=== PATIENT | male | born 1970 | race American Indian/Alaskan Native ===

== ENCOUNTER 2017-04-24 22:14 | Emergency (ER) | payer SELFPAY ==
[2017-04-24] MEDS ORDERED: Nitroglycerin 0.4 MG Tab.SL SL PRN (22:25)
[2017-04-24] MEDS ORDERED: Aspirin 81 MG Tab.Chew PO ONE (22:25)
[2017-04-24] MEDS ORDERED: Nitroglycerin 2% Oint 1 GM UD Packet TOP ONE (22:25)
--- NOTE | 2017-04-24 22:28 | EDM.PDOC ---
ED HPI GENERAL MEDICAL PROBLEM - General Chief Complaint: Chest Pain Stated Complaint: TROUBLE BREATHING/CHEST PAIN Time Seen by Provider: 04/24/17 22:24 - History of Present Illness INITIAL COMMENTS - FREE TEXT/NARRATIVE: HISTORY AND PHYSICAL: History of present illness: Patient is 46-year-old male with history of hypertension and medical noncompliance presents with concern of chest pain substernal with associated shortness of breath that woke sleeps approximately 1 hour prior to arrival been no diaphoresis nausea vomiting or palpitations patient denies other concern Review of systems: As per history of present illness and below otherwise all systems reviewed and negative. Past medical history: As per history of present illness and as reviewed below otherwise noncontributory. Surgical history: As per history of present illness and as reviewed below otherwise noncontributory. Social history: No reported history of drug or alcohol abuse. Family history: As per history of present illness and as reviewed below otherwise noncontributory. Physical exam: HEENT: Atraumatic, normocephalic, pupils reactive, negative for conjunctival pallor or scleral icterus, mucous membranes moist, throat clear, neck supple, nontender, trachea midline. Lungs: Clear to auscultation, breath sounds equal bilaterally, chest nontender. Heart: S1S2, regular, negative for clicks, rubs, or JVD. Abdomen: Soft, nondistended, nontender. Negative for masses or hepatosplenomegaly. Negative for costovertebral tenderness. Pelvis: Stable nontender. Genitourinary: Deferred. Rectal: Deferred. Extremities: Atraumatic, negative for cords or calf pain. Neurovascular unremarkable. Neuro: Awake, alert, oriented. Cranial nerves II through XII unremarkable. Cerebellum unremarkable. Motor and sensory unremarkable throughout. Exam nonfocal. Diagnostics: CBC CMP PT/INR troponin chest x-ray EKG Therapeutics: IV O2 monitor aspirin 324 mg sublingual nitroglycerin Impression: #1 chest pain #2 history hypertension #3 Vicryl noncompliance Definitive disposition and diagnosis as appropriate pending reevaluation and review of above. Chest Pain Score (Numeric/FACES): 7 - Related Data Allergies Allergy/AdvReac Type Severity Reaction Status Date / Time No Known Allergies Allergy Verified 04/24/17 22:18 Home Meds: Home Meds . [No Known Home Meds] 04/24/17 [History] Past Medical History Cardiovascular History: Reports: Hypertension, Other (See Below) Other Cardiovascular History: cardio problem unknown by patient Social & Family History - Tobacco Use Smoking Status *Q: Never Smoker - Recreational Drug Use Recreational Drug Use: No ED ROS GENERAL - Review of Systems Review Of Systems: ROS reveals no pertinent complaints other than HPI. ED EXAM, GENERAL - Physical Exam Exam: See Below (See dictation) Course - Vital Signs Last Recorded V/S: Last Vital Signs Temp Pulse Resp BP 152/85 H 04/24/17 22:40 Pulse Ox - Orders/Labs/Meds Orders: Active Orders 24 hr Category Date Time Status Cardiac Education [RC] Click to Edit Care 04/24/17 22:20 Active Cardiac Monitoring [RC] . DIRECTED Care 04/24/17 22:20 Active EKG Documentation Completion [RC] STAT Care 04/24/17 22:20 Active Chest 1V Frontal [CR] Stat Exams 04/24/17 22:22 Taken Nitroglycerin [Nitrostat] Med 04/24/17 22:25 Active 0.4 mg SL Q5M PRN Sodium Chloride 0.9% [Normal Saline] 1,000 ml Med 04/24/17 22:30 Active IV STAT Medication Orders Sodium Chloride (Normal Saline) 1,000 mls @ 125 mls/hr IV STAT ELIGIO Last Admin: 04/24/17 22:38 Dose: 125 mls/hr Nitroglycerin (Nitrostat) 0.4 mg SL Q5M PRN PRN Reason: Chest Pain Last Admin: 04/24/17 22:39 Dose: 0.4 mg Labs: Laboratory Tests 04/24/17 04/24/17 04/24/17 Range/Units 22:20 22:20 22:20 WBC 5.14 (4.0-11.0) K/uL RBC 4.96 (4.50-5.90) M/uL Hgb 16.2 (13.0-17.0) g/dL Hct 44.4 (38.0-50.0) % MCV 89.5 (80.0-98.0) fL MCH 32.7 H (27.0-32.0) pg MCHC 36.5 (31.0-37.0) g/dL RDW Std Deviation 42.6 (28.0-62.0) fl RDW Coeff of Mk 13 (11.0-15.0) % Plt Count 181 (150-400) K/uL MPV 9.40 (7.40-12.00) fL Neut % (Auto) 37.6 L (48.0-80.0) % Lymph % (Auto) 42.8 H (16.0-40.0) % [place] % (Auto) 12.8 (0.0-15.0) % Eos % (Auto) 6.6 (0.0-7.0) % Baso % (Auto) 0.2 (0.0-1.5) % Neut # (Auto) 1.9 (1.4-5.7) K/uL Lymph # (Auto) 2.2 (0.6-2.4) K/uL [place] # (Auto) 0.7 (0.0-0.8) K/uL Eos # (Auto) 0.3 (0.0-0.7) K/uL Baso # (Auto) 0.0 (0.0-0.1) K/uL Nucleated RBC % 0.0 /100WBC Nucleated RBCs # 0 K/uL INR 0.92 (0.86-1.11) Sodium 141 (136-146) mmol/L Potassium 3.8 (3.5-5.1) mmol/L Chloride 109 (98-110) mmol/L Carbon Dioxide 17 L (21-31) mmol/L BUN 15 (6.0-23.0) mg/dL Creatinine 0.8 (0.6-1.5) mg/dL Est Cr Clr Drug Dosing 125.29 mL/min Estimated GFR (MDRD) > 60.0 ml/min Glucose 137 H (60-110) mg/dL Calcium 9.5 (8.8-10.8) mg/dL Total Bilirubin 0.4 (0.1-1.5) mg/dL AST 39 (5-40) IU/L ALT 67 H (8-54) IU/L Alkaline Phosphatase 77 (40-150) CK-MB (CK-2) 0.7 (0-6.6) ng/ml Troponin I (0.0-0.29) NG/ML Total Protein 8.1 H (6.0-8.0) g/dL Albumin 4.5 (3.5-5.0) g/dL Globulin 3.6 H (2.0-3.5) g/dL Albumin/Globulin Ratio 1.3 (1.3-2.8) 04/24/17 Range/Units 22:20 WBC (4.0-11.0) K/uL RBC (4.50-5.90) M/uL Hgb (13.0-17.0) g/dL Hct (38.0-50.0) % MCV (80.0-98.0) fL MCH (27.0-32.0) pg MCHC (31.0-37.0) g/dL RDW Std Deviation (28.0-62.0) fl RDW Coeff of Mk (11.0-15.0) % Plt Count (150-400) K/uL MPV (7.40-12.00) fL Neut % (Auto) (48.0-80.0) % Lymph % (Auto) (16.0-40.0) % [place] % (Auto) (0.0-15.0) % Eos % (Auto) (0.0-7.0) % Baso % (Auto) (0.0-1.5) % Neut # (Auto) (1.4-5.7) K/uL Lymph # (Auto) (0.6-2.4) K/uL [place] # (Auto) (0.0-0.8) K/uL Eos # (Auto) (0.0-0.7) K/uL Baso # (Auto) (0.0-0.1) K/uL Nucleated RBC % /100WBC Nucleated RBCs # K/uL INR (0.86-1.11) Sodium (136-146) mmol/L Potassium (3.5-5.1) mmol/L Chloride (98-110) mmol/L Carbon Dioxide (21-31) mmol/L BUN (6.0-23.0) mg/dL Creatinine (0.6-1.5) mg/dL Est Cr Clr Drug Dosing mL/min Estimated GFR (MDRD) ml/min Glucose (60-110) mg/dL Calcium (8.8-10.8) mg/dL Total Bilirubin (0.1-1.5) mg/dL AST (5-40) IU/L ALT (8-54) IU/L Alkaline Phosphatase (40-150) CK-MB (CK-2) (0-6.6) ng/ml Troponin I < 0.10 (0.0-0.29) NG/ML Total Protein (6.0-8.0) g/dL Albumin (3.5-5.0) g/dL Globulin (2.0-3.5) g/dL Albumin/Globulin Ratio (1.3-2.8) Meds: Medications Generic Name Dose Route Start Last Admin Trade Name Freq PRN Reason Stop Dose Admin Sodium Chloride 1,000 mls @ 125 mls/hr 04/24/17 22:30 04/24/17 22:38 Normal Saline IV 125 mls/hr STAT ELIGIO Administration Nitroglycerin 0.4 mg 04/24/17 22:25 04/24/17 22:39 Nitrostat SL 0.4 mg Q5M PRN Administration Chest Pain Discontinued Medications Generic Name Dose Route Start Last Admin Trade Name Freq PRN Reason Stop Dose Admin Aspirin 324 mg 04/24/17 22:25 04/24/17 22:39 Aspirin PO 04/24/17 22:26 324 mg ONETIME ONE Administration Nitroglycerin 1 gm 04/24/17 22:25 04/24/17 22:39 Nitro-Bid 2% TOP 04/24/17 22:26 1 gm ONETIME ONE Administration Nitroglycerin Confirm 04/24/17 22:33 04/24/17 22:40 Nitrostat Administered 04/24/17 22:34 Not Given Dose 1.2 mg .ROUTE .STK-MED ONE Departure - Departure Time of Disposition: 23:28 Disposition: Against Medical Advice 07 Condition: Undetermined Clinical Impression: Chest pain - Discharge Information Forms: ED Department Discharge Additional Instructions: The following information is given to patients seen in the emergency department who are being discharged to home. This information is to outline your options for follow-up care. We provide all patients seen in our emergency department with a follow-up referral. The need for follow-up, as well as the timing and circumstances, are variable depending upon the specifics of your emergency department visit. If you don't have a primary care physician on staff, we will provide you with a referral. We always advise you to contact your personal physician following an emergency department visit to inform them of the circumstance of the visit and for follow-up with them and/or the need for any referrals to a consulting specialist. The emergency department will also refer you to a specialist when appropriate. This referral assures that you have the opportunity for followup care with a specialist. All of these measure are taken in an effort to provide you with optimal care, which includes your followup. Under all circumstances we always encourage you to contact your private physician who remains a resource for coordinating your care. When calling for followup care, please make the office aware that this follow-up is from your recent emergency room visit. If for any reason you are refused follow-up, please contact the [facility] emergency department at and asked to speak to the emergency department charge nurse. Follow-up primary medical doctor ADIEL take meds as prescribed and return as needed - My Orders Last 24 Hours: My Active Orders 04/24/17 22:20 Cardiac Education [RC] Click to Edit Cardiac Monitoring [RC] . DIRECTED EKG Documentation Completion [RC] STAT 04/24/17 22:22 Chest 1V Frontal [CR] Stat 04/24/17 22:25 Nitroglycerin [Nitrostat] 0.4 mg SL Q5M PRN 04/24/17 22:30 Sodium Chloride 0.9% [Normal Saline] 1,000 ml IV STAT - Assessment/Plan Last 24 Hours: My Active Orders 04/24/17 22:20 Cardiac Education [RC] Click to Edit Cardiac Monitoring [RC] . DIRECTED EKG Documentation Completion [RC] STAT 04/24/17 22:22 Chest 1V Frontal [CR] Stat 04/24/17 22:25 Nitroglycerin [Nitrostat] 0.4 mg SL Q5M PRN 04/24/17 22:30 Sodium Chloride 0.9% [Normal Saline] 1,000 ml IV STAT
[2017-04-24] MEDS ORDERED: Sodium Chloride 0.9% 1,000 ML IV SCH (22:30)
[2017-04-24] MEDS ORDERED: Nitroglycerin 0.4 MG Tab.SL ONE (22:33)
[2017-04-24 22:50] LABS: CHLORIDE,CL 109 mmol/L (98-110); SODIUM,NA 141 mmol/L (136-146)
[2017-04-25 00:08] VITALS: BP 140/80
--- NOTE | 2017-04-25 13:55 | CR ---
EXAM DATE: 04/24/17 PATIENT'S AGE: 46 Patient: ZO ALLEN Facility: [place], [place] Site . Site : [id number] Study: XRay Chest [id number]/29/2017 10:40:40 PM Ordering Physician: Doctor Bethea Final Report: INDICATION: chest pain TECHNIQUE: Chest 1 view COMPARISON: May 04, 2009. FINDINGS: Cardiovascular and mediastinum: Heart size and vasculature are normal in caliber and appearance. Mediastinum is within normal limits. Lungs and pleural space: No focal consolidation. Elevation of the right hemidiaphragm. No sign of pleural effusion. No pneumothorax. Bones and soft tissues: No significant findings. IMPRESSION: No acute cardiopulmonary disease. Dictated by Michelet Be MD @ 04/24/2017 11:17:30 PM Dictated by: Michelet Be MD @ 04/24/2017 23:17:37 (Electronic Signature) Report Signed by Proxy. MARY IMOGENE BASSETT HOSPITALJaun
== END 2017-04-24 23:42 | disposition left against medical advice (07) ==
LOC: MW.ED 22:14
DX: R07.2 Precordial pain (principal); I10 Essential (primary) hypertension; Z91.14 Patient's other noncompliance with medication regimen
CPT/HCPCS: 36415; 71010; 80053; 82553; 84484; 85025; 85610; 96360; 99285; A9270; J7040; 93005; 99283

== ENCOUNTER 2019-08-26 09:26 | Day surgery (SDC) | payer OTHER ==
[~2019-08-26 09:26] MED LIST: Lactated Ringers 1,000 ML IV SCH; Sodium Chloride 0.9% 10 ML SDV IV PRN; Sodium Chloride 0.9% 10 ML Syringe FLUSH PRN; Sodium Chloride 0.9% 2.5 ML Syringe FLUSH PRN
[2019-08-26] MEDS ORDERED: Lidocaine 2% 5 ML SDV ONE (11:26)
[2019-08-26] MEDS ORDERED: Propofol 200 MG/20 ML SDV ONE (11:26)
[2019-08-26] MEDS ORDERED: Midazolam 1 MG/ML 2 ML SDV ONE (11:26)
[2019-08-26] MEDS ORDERED: Glycopyrrolate 0.2 MG/ML SDV ONE (11:26)
--- NOTE | 2019-08-26 12:37 | PCM.OPNOTE ---
- General Post-Op/Procedure Note Date of Surgery/Procedure: 08/26/19 Operative Procedure(s): Diagnostic EGD and colonoscopy Findings: Hiatal hernia with esophagitis, transverse colon lipoma, descending colon polyp , rectal polyp Pre Op Diagnosis: Hemoptysis, change in bowel habits Post-Op Diagnosis: Hiatal hernia with esophagitis, transverse colon lipoma, descending colon polyp, rectal polyp Anesthesia Technique: MAC Primary Surgeon: Erny Cheung Condition: Good
[2019-08-26 12:49] VITALS: BP 119/83; PULSE 63
--- NOTE | 2019-08-26 14:01 | PCM48HPAN ---
Post Anesthesia Note - EVALUATION WITHIN 48HRS OF ANESTHETIC Vital Signs in Normal Range: Yes Patient Participated in Evaluation: Yes Respiratory Function Stable: Yes Airway Patent: Yes Cardiovascular Function Stable: Yes Hydration Status Stable: Yes Pain Control Satisfactory: Yes Nausea and Vomiting Control Satisfactory: Yes Mental Status Recovered: Yes Vital Signs: Last Vital Signs Temp 96.8 F 08/26/19 12:43 Pulse 63 08/26/19 12:43 Resp 16 08/26/19 12:43 BP 119/83 08/26/19 12:43 Pulse Ox 99 08/26/19 12:43
--- NOTE | 2019-08-26 14:01 | PCM.POSTAN ---
POST ANESTHESIA ASSESSMENT - MENTAL STATUS Mental Status: Alert, Oriented - VITAL SIGNS Vital Signs: Last Vital Signs Temp 96.8 F 08/26/19 12:43 Pulse 63 08/26/19 12:43 Resp 16 08/26/19 12:43 BP 119/83 08/26/19 12:43 Pulse Ox 99 08/26/19 12:43 - RESPIRATORY Respiratory Status: Respiratory Rate WNL, Airway Patent, O2 Saturation Stable - CARDIOVASCULAR CV Status: Pulse Rate WNL, Blood Pressure Stable - GASTROINTESTINAL GI Status: No Symptoms - POST OP HYDRATION Hydration Status: Adequate & Stable
--- NOTE | 2019-08-26 14:01 | PCM.PREANE ---
Preanesthetic Assessment - Anesthesia/Transfusion/Family Hx Anesthesia History: No Prior Anesthesia Family History of Anesthesia Reaction: No Transfusion History: No Prior Transfusion(s) - Review of Systems General: No Symptoms Pulmonary: No Symptoms Cardiovascular: No Symptoms Gastrointestinal: No Symptoms Neurological: No Symptoms Other: Reports: None - Physical Assessment NPO Status Date: 08/26/19 NPO Status Time: 07:30 Vital Signs: Last Vital Signs Temp 96.8 F 08/26/19 12:43 Pulse 63 08/26/19 12:43 Resp 16 08/26/19 12:43 BP 119/83 08/26/19 12:43 Pulse Ox 99 08/26/19 12:43 Height: 6 ft Weight: 98.43 kg ASA Class: 2 Mental Status: Alert & Oriented x3 Airway Class: Mallampati = 2 Dentition: Reports: Normal Dentition ROM/Head Extension: Full Lungs: Clear to Auscultation, Normal Respiratory Effort Cardiovascular: Regular Rate, Regular Rhythm - Allergies Allergies/Adverse Reactions: Allergies Allergy/AdvReac Type Severity Reaction Status Date / Time No Known Allergies Allergy Verified 04/24/17 22:18 - Blood Blood Available: No - Anesthesia Plan Pre-Op Medication Ordered: None - Acknowledgements Anesthesia Type Planned: General Anesthesia Pt an Appropriate Candidate for the Planned Anesthesia: Yes Alternatives and Risks of Anesthesia Discussed w Pt/Guardian: Yes Pt/Guardian Understands and Agrees with Anesthesia Plan: Yes Additional Comments: htn, gerd, smoker, thyroid replacement PreAnesthesia Questionnaire HEENT History: Reports: None Cardiovascular History: Reports: High Cholesterol, Hypertension Respiratory History: Reports: None Gastrointestinal History: Reports: GERD, Helicobacter Pylori Genitourinary History: Reports: None Musculoskeletal History: Reports: Gout Neurological History: Reports: None Psychiatric History: Reports: Anxiety Endocrine/Metabolic History: Reports: Hypothyroidism Hematologic History: Reports: None Immunologic History: Reports: None Oncologic (Cancer) History: Reports: None Dermatologic History: Reports: None - Past Surgical History Head Surgeries/Procedures: Reports: None HEENT Surgical History: Reports: None Cardiovascular Surgical History: Reports: None Respiratory Surgical History: Reports: None GI Surgical History: Reports: None Male Surgical History: Reports: None Endocrine Surgical History: Reports: None Neurological Surgical History: Reports: None Musculoskeletal Surgical History: Reports: None Oncologic Surgical History: Reports: None Dermatological Surgical History: Reports: None - SUBSTANCE USE Smoking Status *Q: Never Smoker Tobacco Use Within Last Twelve Months: Smokeless Tobacco Recreational Drug Type: Reports: Marijuana/Hashish Recreational Drug Last Use: Aug 21 - HOME MEDS Home Medications: Home Meds Levothyroxine Sodium [Levoxyl] 50 mcg PO DAILY 08/21/19 [History] Lisinopril [Zestril] 20 mg PO DAILY 08/21/19 [History] Rosuvastatin Calcium 20 mg PO DAILY 08/21/19 [History] Colchicine 0.6 mg PO ASDIRECTED PRN 08/22/19 [History] Omeprazole 20 mg PO ACBREAKFAST #30 tablet. 08/26/19 [Rx] - CURRENT (IN HOUSE) MEDS Current Meds: Current Medications Discontinued Medications Glycopyrrolate (Robinul) Confirm Administered Dose 0.2 mg .ROUTE .STK-MED ONE Stop: 08/26/19 11:27 Lactated Ringer's (Ringers, Lactated) 1,000 mls @ 125 mls/hr IV ASDIRECTED ELIGIO Last Admin: 08/26/19 10:00 Dose: 125 mls/hr Lidocaine (Xylocaine-Mpf 2%) Confirm Administered Dose 5 ml .ROUTE .STK-MED ONE Stop: 08/26/19 11:27 Midazolam HCl (Versed 1 Mg/Ml) Confirm Administered Dose 2 mg .ROUTE .STK-MED ONE Stop: 08/26/19 11:27 Propofol (Diprivan 20 Ml) Confirm Administered Dose 400 mg .ROUTE .STK-MED ONE Stop: 08/26/19 11:27 Sodium Chloride (Saline Flush) 10 ml FLUSH ASDIRECTED PRN PRN Reason: Keep Vein Open Sodium Chloride (Saline Flush) 2.5 ml FLUSH ASDIRECTED PRN PRN Reason: Keep Vein Open Sodium Chloride (Saline Flush) 10 ml FLUSH ASDIRECTED PRN PRN Reason: Keep Vein Open Sodium Chloride (Saline Flush) 2.5 ml FLUSH ASDIRECTED PRN PRN Reason: Keep Vein Open Sodium Chloride (Normal Saline) 10 ml IV ASDIRECTED PRN PRN Reason: IV Use
--- NOTE | 2019-08-27 10:44 | OR ---
SURGEON: ERYN CHEUNG MD DATE OF PROCEDURE: 08/26/2019 PREOPERATIVE DIAGNOSES: Hemoptysis, change in bowel habits. POSTOPERATIVE DIAGNOSES: 1. Hiatal hernia with gastroesophageal reflux disease and esophagitis. 2. Transverse colon lipoma. 3. Descending colon polyp. 4. Rectal polyp. PROCEDURES PERFORMED: Diagnostic esophagogastroduodenoscopy and colonoscopy. PRIMARY SURGEON: Eryn Cheung MD. ANESTHESIA: MAC. INSTRUMENT USED: Olympus endoscope, colonoscope. EXTENT OF EXAM: To the second portion of duodenum, to the cecum. PREPARATION: Good. LIMITATIONS: None. INDICATIONS FOR EXAMINATION: The patient is a 48-year-old male who presents with intermittent hemoptysis as well as a change in his bowel habits. The decision was made to proceed with a diagnostic EGD and colonoscopy. I explained the procedure; expected perioperative course; and risks including bleeding, infection, or damage to surrounding structures including perforation. The patient verbalized understanding and wishes to proceed. PROCEDURE IN DETAIL: The patient was brought into the endoscopy suite and placed in the left lateral decubitus position. A time-out was completed verifying the patient's name, age, date of , allergies, and procedure to be performed. A bite block was placed in the patient's mouth. Monitored anesthesia care was induced and continuous oxygen was provided via nasal cannula throughout the procedure. After adequate sedation was achieved, a well-lubricated endoscope was placed in the patient's mouth and advanced under direct visualization to the second portion of the duodenum. This appeared normal and a photograph was taken. The scope was then fully withdrawn while examining the color, texture, anatomy, and integrity of the mucosa of the upper GI tract. The duodenum appeared normal. The scope was brought into the stomach and a photograph was taken of the pylorus as well as the GE junction. The patient was noted to have hiatal hernia. The mucosa of the stomach was free of gross inflammation or ulceration. Biopsies were taken of the gastric antrum, body, and fundus and sent for histologic review and H. pylori testing. The scope was brought into the distal esophagus and a photograph was taken of the hiatal hernia sac as well as the GE junction. In the GE junction, the patient was noted to have inflammation and slight narrowing. A biopsy was taken 1 cm above this and sent to pathology, labeled as esophagus. The remainder of the esophageal mucosa appeared normal. The scope was removed and this portion of the procedure terminated. A digital rectal exam was performed. This exam was within normal limits. A well-lubricated colonoscope was inserted in the rectum and advanced under direct visualization to the level of the cecum. The cecum was identified by both visual and anatomic landmarks. A photograph was taken of the cecal cap as well as with the scope retroflexed within the cecum. The scope was then fully withdrawn while examining the color, texture, anatomy, and integrity of the mucosa from the cecum to the anal canal. The patient was noted to have a transverse colon mass which appeared to be a lipoma. A biopsy of this was taken and sent to pathology, labeled as transverse colon biopsy. However, after taken the biopsy, I noted fat underneath my biopsy site consistent with a lipoma. The patient had a small sessile polyp in the descending colon and in the rectum. These were both removed in piecemeal fashion using cold biopsy forceps. The scope was brought into the rectum and retroflexed to allow visualization of the anal canal opening. This appeared normal and a photograph was taken. The scope was straightened out and fully withdrawn. The cecum to anus time was 6 minutes. The patient tolerated the procedure well and was transferred to the PACU in stable condition. ENDOSCOPIC DIAGNOSES: 1. Hiatal hernia with gastroesophageal reflux disease and esophagitis. 2. Transverse colon lipoma. 3. Descending colon polyp. 4. Rectal polyp. RECOMMENDATIONS: Follow up in clinic in 2 weeks. TASHA IYER /[id number]
== END 2019-08-26 13:05 | disposition home or self-care (01) ==
LOC: MW.SDS 09:26
PROVIDERS: ATTEND Surgery
DX: D12.4 Benign neoplasm of descending colon (principal); D12.8 Benign neoplasm of rectum; D17.5 Benign lipomatous neoplasm of intra-abdominal organs; K44.9 Diaphragmatic hernia without obstruction or gangrene; K21.0 Gastro-esophageal reflux disease with esophagitis; I10 Essential (primary) hypertension; E78.00 Pure hypercholesterolemia, unspecified; F41.9 Anxiety disorder, unspecified; E03.9 Hypothyroidism, unspecified; Z79.899 Other long term (current) drug therapy
CPT/HCPCS: 43239; 45380; J2001; J2250; J2704; J3490; J7120; 00813; 88305; 88312